=== PATIENT | male | born 1995 | race Caucasian/White ===

== ENCOUNTER 2018-02-08 14:59 | Emergency (ER) | payer SELFPAY, OTHER, MEDICAID ==
[2018-02-08] MEDS: ONDANSETRON 4 MG INJ IV ×2 (16:40→18:31)
[2018-02-08] MEDS: KETOROLAC 30 MG INJ IV (16:41)
[2018-02-08] MEDS: SOD CHLORIDE 0.9% 1,000 ML IV (16:41)
[2018-02-08] MEDS: METOCLOPRAMIDE 10 MG INJ IV (17:12)
[2018-02-08] MEDS: morphine 4 MG/ML VIAL IV (17:26)
[2018-02-08 18:34] LABS: ADD MAN DIFF? NO
[2018-02-08 18:38] LABS: BASOPHILS % 0.2 % (0.0-2.0); EOSINOPHILS % 0.1 % (0.0-7.0); HEMATOCRIT 39.6 % (42.0-52.0); HEMOGLOBIN 13.6 g/dl (14.0-18.0); LYMPHOCYTES # 1.2 10^3/ul (0.8-2.9); LYMPHOCYTES % 10.2 % (18.0-55.0); MEAN CORPUSCULAR HEMOGLOBIN 31.7 pg (29.0-33.0); MEAN CORPUSCULAR HGB CONC 34.3 g/dl (32.0-37.0); MEAN CORPUSCULAR VOLUME 92.3 fl (72.0-104.0); MEAN PLATELET VOLUME 9.6 fl (7.4-10.4); MONOCYTE # 0.4 10^3/ul (0.3-0.9); MONOCYTES % 3.5 % (0.0-13.0); NEUTROPHIL # 9.9 10^3/ul (1.6-7.5); NEUTROPHILS % 85.5 % (30.0-74.0); PLATELET COUNT 430 10^3/UL (140-415); RED BLOOD COUNT 4.29 10^6/ul (4.70-6.10); RED CELL DISTRIBUTION WIDTH 12.9 % (11.5-14.5)
[2018-02-08 18:38] LABS: WHITE BLOOD COUNT 11.6 10^3/ul (4.8-10.8)
[2018-02-08 19:00] LABS: ANION GAP 14 (8-16); BLOOD UREA NITROGEN 12 mg/dl (7-20); CALCIUM 9.2 mg/dl (8.4-10.2); CARBON DIOXIDE 23 mmol/L (21-31); CHLORIDE 109 mmol/L (97-110); CREATININE 0.71 mg/dl (0.61-1.24); GLUCOSE 123 mg/dl (70-220); LIPASE 137 U/L (23-300); POTASSIUM 3.7 mmol/L (3.5-5.1); SODIUM 142 mmol/L (135-144)
== END 2018-02-08 19:32 | disposition left against medical advice (07) ==
LOC: FTE 14:59
DX: R10.33 Periumbilical pain (principal); R11.10 Vomiting, unspecified
CPT/HCPCS: 80048; 83690; 85025; 96374; 96375; 99284-25